=== PATIENT | male | born 2000 | race Caucasian/White ===

== ENCOUNTER 2024-11-25 01:24 | Emergency (ER) | payer MEDICAID ==
[~2024-11-25] VITALS: Ht 172.7 cm; Wt 73.0 kg
[~2024-11-25 01:24] MED LIST: IBUP-2029 MT
[2024-11-25 01:27] VITALS: TEMP 36.7; O2SAT 98
[2024-11-25] MEDS ORDERED: IBUP-2029 MT (02:22)
[2024-11-25 03:29] VITALS: BP 121/75; PULSE 80; RESP 17; O2SAT 100
== END 2024-11-25 03:32 | disposition home or self-care (01) ==
LOC: ER 01:42
DX: S90.01XA Contusion of right ankle, initial encounter (principal); M85.871 Other specified disorders of bone density and structure, right ankle and foot; X50.1XXA Overexertion from prolonged static or awkward postures, initial encounter; Y93.89 Activity, other specified; Y92.89 Other specified places as the place of occurrence of the external cause; Y99.8 Other external cause status
CPT/HCPCS: 73610; 99283